=== PATIENT | male | born 1990 | race American Indian/Alaskan Native ===

== ENCOUNTER 2021-08-31 08:09 | Emergency (ER) | payer SELFPAY ==
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
[2021-08-31] MEDS ORDERED: levETIRAcetam 1000 MG/NS 0.75% 1,000 MG/100 ML BAG IV SCH ×2 (08:30→09:00)
[2021-08-31] MEDS ORDERED: METOCLOPRAMIDE 10 MG/2 ML INJ IV SCH (08:30)
[2021-08-31] MEDS ORDERED: LACTATED RINGERS 1,000 ML IV ONE (08:30)
[2021-08-31] MEDS ORDERED: MIDAZOLAM 2 MG/2 ML INJ IV SCH (08:30)
[2021-08-31 08:43] LABS: Hematocrit 40.5 % (35.5-45.6); Hemoglobin 13.4 gm/dl (11.8-15.2); Mean Corpuscular HGB Conc 33 % (32-34); Mean Corpuscular Volume 88 fl (84-94); Platelet Count 205 K/mm3 (140-440); Red Blood Count 4.62 M/mm3 (3.65-5.03); Red Cell Distribution Width 14.6 % (13.2-15.2)
[2021-08-31 09:47] LABS: Alanine Aminotransferase 13 units/L (7-56); Albumin 4.8 g/dL (3.9-5); BUN/Creatinine Ratio 7; Blood Urea Nitrogen 8 mg/dL (9-20); Calcium 9.3 mg/dL (8.4-10.2); Hemolysis Index 18
--- NOTE | 2021-08-31 09:48 | Cat Scan Report ---
CT HEAD WITHOUT CONTRAST INDICATION / CLINICAL INFORMATION: seizure closed head injury. TECHNIQUE: All CT scans at this location are performed using CT dose reduction for ALARA by means of automated exposure control. COMPARISON: None available. FINDINGS: BRAIN PARENCHYMA: No acute intracranial hemorrhage. No evidence of recent infarct. No mass effect or midline shift. VENTRICULAR SYSTEM/EXTRA-AXIAL SPACES: Ventricles are normal for age. No extra-axial fluid collection . ORBITS: Normal as visualized. SKELETAL SYSTEM/SOFT TISSUES: Mild diffuse scalp soft tissue swelling. Calvarium is intact. No acute fracture. PARANASAL SINUSES/MASTOID AIR CELLS: No significant abnormality. ADDITIONAL FINDINGS: None. IMPRESSION: 1. No acute intracranial abnormality. Signer Name: Tom Crocker MD Signed: 08/31/2021 9:43 AM Workstation Name: [id number]
[2021-08-31 11:45] LABS: Bilirubin,Urine NEG (Negative); Blood,Urine SM (Negative); Color,Urine Straw (Yellow); Urobilinogen,Urine < 2.0 mg/dL (<2.0)
[2021-08-31 11:46] LABS: Amphetamine Screen,Urine Negative; Benzodiazepines Screen,Urine Negative; Cocaine Screen,Urine Negative; Methadone Screen,Urine Negative; Opiate Screen,Urine Negative
[2021-08-31 11:47] LABS: Cannabinoid Screen,Urine Positive
[2021-08-31 12:21] VITALS: BP 116/62
--- NOTE | 2021-09-01 10:40 | Electrocardiograph Report ---
[facility] Test Date: 2021-08-31 Test Time: 10:10:08 Pat Name: NIKKO SHANNON Department: Room: Gender: M Mammography Tech: NURSE : 1990 Requested By: JONATAN LOGAN Order Number: [id number] Reading MD: Walt Hodge Measurements Intervals [place] Rate: 65 P: 59 FL: 170 QRS: 62 QRSD: 92 T: 23 QT: 383 QTc: 398 Interpretive Statements Sinus rhythm ST elev, probable normal early repol pattern No previous ECG available for comparison Electronically Signed On 09-01-2021 10:40:26 EDT by Walt Hodge
== END 2021-08-31 12:20 | disposition home or self-care (01) ==
LOC: ED 08:09
DX: S09.90XA Unspecified injury of head, initial encounter (principal); R11.2 Nausea with vomiting, unspecified; G40.909 Epilepsy, unspecified, not intractable, without status epilepticus; Z79.899 Other long term (current) drug therapy
CPT/HCPCS: 36415; 70450; 80053; 80307; 81001; 82550; 83735; 85027; 93005; 96361; 96374; 96375; 96376; 99284; J1953; J2250; J2765; J7120; 80320; G0480